=== PATIENT | male | born 1945 | race Two or more races ===

== ENCOUNTER → 2016-04-03 | Outpatient (CLI) | payer OTHER ==
[2016-04-03 10:20] LABS: AADO2 Arterial 30.5 mmHg (7.0-24.0); Allen Test ACCEPTAB; Arterial Base Excess -0.1 mmol/L (-3.0-3); Arterial COHb 0.8 % (0.0-3.0); Arterial Fraction of Oxyhgb 94.1 % (93.0-99.0); Arterial HCO3 24.1 mmol/L (22.0-26.0); Arterial MetHb 0.1 % (0.0-1.5); Arterial Total Hemglobin 13.5 g/dl (12.0-18.0); MODE ROOM AIR
--- NOTE | 2016-04-12 19:44 | CONS ---
DATE OF ADMISSION: 04/03/2016 DATE OF CONSULTATION: TYPE OF CONSULTATION: Preoperative gastroenterology Dear Dr. Obando: I thank you very much for this kind referral. HISTORY OF PRESENT ILLNESS: Mr. Jerman Moya is a 71-year-old male patient who has been referred t o me for further evaluation of rectal bleeding. The patient states he is having rectal bleeding for the past 3 years. There is no past history of colon neoplasm. He never had screening colonoscopy. His appetite has been good and he is not losing any weight. He does not have any upper abdominal pain, nausea or vomiting. There is no history of peptic ulcer disease. The patient has been taking baby aspirin a day. There is no history of gallstones. He does not have any fever, chills or rasta dice. There is no history of liver disease. He is hypertensive. He is not a diabetic. He has got coronary artery disease, and he is status post coronary artery stent placement. He is on Plavix. He also has had a pacemaker insertion. He has got chronic obstructive pulmonary disease. He has go t hyperlipidemia. He also has got enlarged prostate. SOCIAL HISTORY: He used to smoke and now he has quit smoking. He does not abuse alcohol. FAMILY HISTORY: Negative for gastrointestinal tract neoplasm. ALLERGIES: THERE IS NO HISTORY OF SIGNIFICANT DRUG ALLERGY. MEDICATIONS 1. Lisinopril. 2. Metoprolol. 3. Isosorbide mononitrate. 4. Atorvastatin. 5. Aspirin 81 mg. 6. Plavix. PHYSICAL EXAMINATION: VITAL SIGNS: He is 5 feet 6 inches tall and he weighs 270 pounds. HEART: Examination of the heart reveals normal first and second heart sounds. LUNGS: Clear. ABDOMEN: Soft without any distention. Liver and spleen are not palpable. There are no masses. RECTAL: Does not reveal any mass. There is no active bleeding at this time of exam. CENTRAL NERVOUS SYSTEM: Does not reveal any focal neurological deficit. IMPRESSION: 1. Rectal bleeding for the past 3 years. 2. The patient never had screening colonoscopy. 3. Hypertension. 4. Coronary artery disease. 5. Status post permanent pacemaker insertion. 6. Status post coronary artery stent placement. 7. The patient is on Plavix and baby aspirin a day. 8. Chronic obstructive pulmonary disease. 9. Hyperlipidemia. 10. Enlarged prostate. 11. Obesity. PLAN: Because of the multiple medical problems including obesity and chronic obstructive pulmonary disease, the patient has got a high anesthesia risk. So we will conservatively treat the patient with Anusol suppositories. I thank you once again. With warmest personal regards, Dictated By: BONNIE GARCIA/FARHAN Conf#: [id number] DID#: [id number]
== END | disposition home or self-care (01) ==
LOC: PUL 10:00
PROVIDERS: ATTEND Internal Medicine Pulmonary Disease
DX: J44.1 Chronic obstructive pulmonary disease with (acute) exacerbation (principal)
CPT/HCPCS: 36600; 82803

== ENCOUNTER 2017-06-23 13:18 | Emergency (ER) | END 2017-06-23 13:21 | disposition left against medical advice (07) ==

== ENCOUNTER → 2017-09-29 | Outpatient (CLI) | END | disposition home or self-care (01) ==

== ENCOUNTER 2018-11-10 10:43 | Day surgery (SDC) | payer OTHER ==
[~2018-11-10] VITALS: Ht 167.6 cm; Wt 117.0 kg
[~2018-11-10 10:43] MED LIST: ASPIRIN; ATOR40TA68 PO; DULERA; FAMOTIDINE; FINASTERIDE; LASIX; LATANOPROST; LIPITOR; LISINOPRIL; METOPROLOL; NITROSTAT; PLAVIX; RANEXA; SPIRIVA RESPIMAT; TAMSULOSIN HCL
[2018-11-10 11:43] VITALS: Ht 167.6 cm; Wt 117.0 kg
[2018-11-10 13:07] VITALS: BP 131/60; PULSE 68; RESP 12
--- NOTE | 2018-11-10 14:37 | PREAC ---
Date/Time of Note Date/Time of Note DATE: 11/10/18 TIME: 14:36 Anesthesia Eval and Record Evaluation Time Pre-Procedure Interview DATE: 11/10/18 TIME: 14:36 Age 73 Sex male NPO: 8 hrs Preoperative diagnosis GI BLEED Planned procedure FLEXIBLE SIGMOIDOSCOPY Past Medical History Past Medical History: Includes Cardio: HTN, CAD Pulm: COPD Surgery & Anesthesia Issues No known issue Meds Anticoagulation: No Beta Zoe within 24 hr: Yes Reported Medications Atorvastatin* (Atorvastatin*) 40 Mg Tablet, 40 MG PO QHS, #30 TAB 11/10/18 [Tamsulosin Hcl] No Conflict Check 04/30/18 [Spiriva Respimat] No Conflict Check 04/30/18 [Nitrostat] No Conflict Check 04/30/18 [Metoprolol] No Conflict Check 04/30/18 [Lisinopril] No Conflict Check 04/30/18 [Lipitor] No Conflict Check 04/30/18 [Latanoprost] No Conflict Check 04/30/18 [Lasix] No Conflict Check 04/30/18 [Finasteride] No Conflict Check 04/30/18 [Dulera] No Conflict Check 04/30/18 [Aspirin] No Conflict Check 04/30/18 Discontinued Reported Medications [Ranexa] No Conflict Check 04/30/18 [Plavix] No Conflict Check 04/30/18 [Famotidine] No Conflict Check 04/30/18 Meds reviewed: Yes Allergies Coded Allergies: No Known Allergy (Unverified , 11/10/18) Allergies Reviewed: Yes Labs/Studies Labs Reviewed: Reviewed by anesthesiologist test: N/A Studies: ECG, CXR Pre-procedure Exam Last vitals Vital Signs Date Temp Pulse Resp B/P (MAP) Pulse Ox O2 O2 Flow FiO2 Time Delivery Rate 11/10/18 97.1 68 12 131/60 96 Room Air 13:07 (83) Airway: Adequate mouth opening, Adequate thyromental dist Mallampati: Mallampati II Teeth: Normal Lung: Normal Heart: Normal ASA Physical Status ASA physical status: 3 Emergency: None Planned Anesthetic General/MAC: MAC Planned Pain Management Parenteral pain med Pre-operative Attestations Prior to commencing anesthesia and surgery, the patient was re-evaluated, there was verification of: *The patient's identity *The results of appropriate recent lab work and preoperative vital signs *The above evaluation not changing prior to induction *Anesthetic plan, risk benefits, alternative and complications discussed with patient/family; questions answered; patient/family understands, accepts and wishes to proceed. DAWN LEAHY Nov 10, 2018 14:37
[2018-11-10 14:49] VITALS: BP 150/66; PULSE 75; RESP 18
--- NOTE | 2018-11-10 15:00 | PAC ---
Date/Time of Note Date/Time of Note DATE: 11/10/18 TIME: 14:59 Post-Anesthesia Notes Post-Anesthesia Note Last documented vital signs Vital Signs Date Temp Pulse Resp B/P (MAP) Pulse Ox O2 O2 Flow FiO2 Time Delivery Rate 11/10/18 97.1 68 12 131/60 96 Room Air 1459 (83) Activity: WNL Respiratory function: WNL Cardiovascular function: WNL Mental status: Baseline Pain reasonably controlled: Yes Hydration appropriate: Yes Nausea/Vomiting absent: Yes DAWN LEAHY Nov 10, 2018 15:00
== END 2018-11-10 16:43 | disposition home or self-care (01) ==
LOC: GIL 10:43
PROVIDERS: ATTEND Internal Medicine Gastroenterology
DX: C19 Malignant neoplasm of rectosigmoid junction (principal); K64.8 Other hemorrhoids; I10 Essential (primary) hypertension; J44.9 Chronic obstructive pulmonary disease, unspecified; E78.00 Pure hypercholesterolemia, unspecified
CPT/HCPCS: 45331; Z7610; 88305